=== PATIENT | female | born 2000 | race Caucasian/White ===

== ENCOUNTER 2020-05-07 13:32 | Emergency (ER) | payer BC, OTHER, MEDICAID ==
[~2020-05-07] VITALS: Ht 162.6 cm; Wt 122.2 kg
[~2020-05-07 13:32] MED LIST: SYNTHROID88 MCG; TRILEPTAL 300300 MG
[2020-05-07 13:52] LABS: URINE BILIRUBIN NEGATIVE (Negative); URINE BLOOD TRACE (Negative); URINE CLARITY CLEAR; URINE COLOR YELLOW; URINE GLUCOSE-RANDOM NEGATIVE (Negative); URINE KETONES NEGATIVE (Negative); URINE LEUKOCYTES-REFLEX NEGATIVE (Negative); URINE NITRITE-REFLEX NEGATIVE (Negative); URINE PROTEIN NEGATIVE (Negative); URINE SPECIFIC GRAVITY >= 1.030 (1.005-1.030); URINE UROBILINOGEN 0.2 E.U./dl (0.2-1.0)
[2020-05-07 14:03] LABS: ABSOLUTE BASOPHILS 0.1 thou/uL (0.0-0.2); ABSOLUTE EOSINOPHILS 0.2 thou/uL (0.0-0.7); ABSOLUTE LYMPHOCYTES 2.6 thou/uL (0.8-5.3); ABSOLUTE MONOCYTES 0.4 thou/uL (0.0-1.2); ABSOLUTE NEUTROPHILS 5.3 thou/uL (1.6-8.1); BASOPHILS 0.7 %; EOSINOPHILS 2.4 %; HEMATOCRIT 41.5 % (37.0-47.0); HEMOGLOBIN 13.8 gm/dL (12.0-15.0); LYMPHOCYTES 29.9 %; MCH 28.1 pg (26.0-34.0); MCHC 33.3 g/dL (28.0-37.0); MCV 84.5 fL (80.0-100.0); MONOCYTES 5.2 %; MPV 8.4 fl. (7.2-11.1); NUCLEATED RBCS 0 /100WBC; PLATELET COUNT* 302 thou/uL (150-400); POLYS 61.8 %; RDW-CV 14.6 % (10.5-14.5); WBC 8.6 thou/uL (4.0-11.0)
[2020-05-07 14:24] LABS: ALBUMIN 4.1 g/dL (3.4-5.0); CALCIUM 8.7 mg/dL (8.5-10.1); POTASSIUM 3.4 mmol/L (3.5-5.1); TOTAL BILIRUBIN 0.3 mg/dL (<0.1-1.0); TOTAL PROTEIN 9.4 g/dL (6.4-8.2)
[2020-05-07 19:00] VITALS: BP 128/79
== END 2020-05-07 19:00 | disposition short-term general hospital (02) ==
LOC: M.ERS 13:32
PROVIDERS: Personal Emergency Response Attendant
DX: J98.2 Interstitial emphysema (principal); E03.9 Hypothyroidism, unspecified; Z20.828 Contact with and (suspected) exposure to other viral communicable diseases; Z90.49 Acquired absence of other specified parts of digestive tract

== ENCOUNTER 2021-06-20 23:28 | Emergency (ER) | payer BC, OTHER, MEDICAID ==
[~2021-06-20] VITALS: Ht 170.2 cm; Wt 117.9 kg
[2021-06-20] MEDS ORDERED: LEVO-T25 MCG PO (23:44)
[2021-06-21] MEDS ORDERED: ZOFRAN ODT4 MG PO (00:29)
[2021-06-21 00:32] VITALS: BP 130/85
== END 2021-06-21 00:33 | disposition home or self-care (01) ==
LOC: M.ERS 23:28
DX: R04.0 Epistaxis (principal); E03.9 Hypothyroidism, unspecified; Z90.89 Acquired absence of other organs; E78.00 Pure hypercholesterolemia, unspecified; Z73.3 Stress, not elsewhere classified; Z79.899 Other long term (current) drug therapy